=== PATIENT | female | born 1975 | race Caucasian/White ===

== ENCOUNTER 2016-03-15 15:06 | Emergency (ER) | payer OTHER ==
[~2016-03-15] VITALS: Ht 160 cm; Wt 102.0 kg
[2016-03-15 15:18] VITALS: BP 146/104; PULSE 108; RESP 20; O2SAT 97
--- NOTE | 2016-03-15 19:08 | ED.REPORT ---
HPI-Back Pain Under 40 Date of Service Mar 15, 2016 ED Provider: Alex Erickson DO This is a healthy 40-year-old female who has a history of chronic recurrent back pain. Her symptoms first started when she lifted something 80-90 pounds. Today she was walking when she felt sharp pain in her low back the rate down her right leg. At times the pain was so great it made her lose some urine. Since then the pain has cooled off a bit. She has not been incontinent of urine. She has not had loss of bowel or bladder control. She does not have any leg weakness R she states the pain comes on suddenly it seems to take the power off of her leg. The strength is returned completely to her leg. She denies having any saddle anesthesia. Nursing Notes Stated Complaint: BACK PAIN Chief Complaint: Back Pain or Injury Nursing Notes Reviewed: Yes Allergies: Coded Allergies: No Known Allergies (Unverified , 03/15/16) General Time Seen by MD: 18:15 Chief Complaint Back pain Hx Obtained From: Patient Arrived By: Walk-in Sudden in Onset?: No Onset Occurred: 2 days ago Symptom Duration: Since onset Caused by: Aggravated old injury Location: : Perispinal lumbar: Spinal lumbar area Quality: Painful Radiation: : Right leg above knee Severity: Current: Moderate Severity: Maximum: Moderate Associated with: Reports: Tingling right lower ext, Denies: Fever, Inability to walk, Incontinence bladder, Incontinence bowel, Weakness right lower ext Pertinent Negative: Relieved by nothing Recent Healthcare: No recent doctor visit Similar Sx Previous: Yes Past Medical History Past Medical History Chronic headaches Chronic back pain Past Surgical History None reported Smoking History Unknown if Ever Smoker Ambulatory Status Independent Review of Systems Constitutional: Denies: Fever Respiratory: Denies: Shortness of breath GI: Denies: Vomiting Musculoskeletal: Reports: Back pain, Extremity pain (Right leg) Neurologic: Denies: Abnormal movement, Bladder dysfunction (she has complete control of her bladder.), Bowel dysfunction, Focal weakness, Problem walking, Syncope, Weakness Complete sys rev & neg: except as marked. Physical Exam Initial Vital Signs Vital Signs (First) Date Time Temp Pulse Resp B/P Pulse Ox O2 Delivery O2 Flow Rate FiO2 03/15/16 15:18 36.4 108 20 146/104 97 Room Air Initial VS: Reviewed Head / Eyes: Atraumatic, Normocephalic ENT: Conjunctiva normal, No scleral icterus Neck: Supple, Full range of motion Respiratory: Breath sounds normal, Clear to auscultation, No respiratory distress Cardiovascular: Regular rate & rhythm, Heart sounds normal Skin: Warm, Dry, No cyanosis Psychiatric: Mood/affect normal, Behavior normal, Normal thought content General/Constitutional: Awake, Alert, No acute distress Back: No midline vertebral tend Lumbar radiculopathy No saddle anesthesia No signs of cauda equina syndrome Neurologic: Oriented X3, Speech NL, No motor deficits (Lower extremity strength symmetrical), No sensory deficits, Reflexes equal bilat Re-Eval/Medical Decision Med Decision/Clinical Course No saddle anesthesia. She declines rectal examination. She states that she is absolute certain that she has control of her anus. Symmetric quadriceps strength. Symmetric hamstring strength. Normal patellar reflexes. Symmetric and normal Achilles reflexes. No saddle anesthesia. No myoclonus No signs of a cord syndrome. Emergent MRI felt to be not indicated: No signs of myelopathy, cord syndrome or epidural or spinal abscess. No signs of myelitis. Pain control clearly indicated. Os of Toradol and dexamethasone given. [place] felt much better. She was able to ambulate without difficulty. We will place her on a Medrol Dosepak as well as a brief course of Percocet for pain. I recommend that she sees her doctor tomorrow and consider outpatient imaging. Source of Hx: Old records Re-Evaluation/Progress : Time of Eval: 19:20 Patient Status: Condition improved Re-Evaluation/Progress Note: Discussed with patient diagnosis and plan for discharge. Follow-up and return to the ER instructions given. Patient agrees with plan for care and all questions were addressed. Counseled Regarding: Diagnosis, Need for follow-up, When/why to return to ED Discharge & Departure Shift Change Sign-Out Response to Therapy: Improved Impression: Primary Impression: Low back pain Chronicity: acute Back pain laterality: right Sciatica presence: with sciatica Sciatica laterality: sciatica of right side Qualified Code: M54.41 - Lumbago with sciatica, right side Additional Impression: Lumbar radiculopathy Disposition: Home All VS Reviewed: Yes Condition: Improved Patient Instructions: Lumbar Radiculopathy (ED), Acute Low Back Pain (ED) Additional Instructions: Thank you for entrusting us with your care. Your exam today was reassuring. Finish the Medrol dose pack. Take Naproxen twice daily for five days as prescribed. 1-2 Percocet every six hours as needed for pain. Do not drink alcohol, drive, or consume acetaminophen while taking Percocet. Call your primary care provider tomorrow for a follow-up appointment. You may need an MRI if you develop loss of bladder control or your leg weakness returns. Return to the ER with any new or worsening symptoms. Referrals: Vasyl Saldana MD (PCP) Scribe Attestation Portions of this note were transcribed by Dorothy Holbrook. I, Dr. Erickson, personally performed the history, physical exam, and medical decision-making; I reviewed and confirmed the accuracy of the information in the transcribed note. Signed by: Cristhian Grier, 03/15/2016, 19:53 copies to: Vasyl Saldana MD, Todd P DO Mar 15, 2016 19:08 DOROTHY HOLBROOK Mar 15, 2016 19:25
[2016-03-15] MEDS ORDERED: Dexamethasone 10 mg/mL Inj IM ONE (19:20)
[2016-03-15] MEDS ORDERED: Ketorolac 30 mg/mL 2 mL Inj IM ONE (19:20)
[2016-03-15 19:42] VITALS: BP 157/108; PULSE 101; RESP 18; O2SAT 96
== END 2016-03-15 19:44 | disposition home or self-care (01) ==
LOC: SED 15:06
DX: M54.41 Lumbago with sciatica, right side (principal); M54.16 Radiculopathy, lumbar region; X50.0XXA Overexertion from strenuous movement or load, initial encounter; Y93.89 Activity, other specified; Y99.0 Civilian activity done for income or pay; Y92.59 Other trade areas as the place of occurrence of the external cause
CPT/HCPCS: 96372; 99284; J1100; J1885